=== PATIENT | female | born 1970 | race Caucasian/White ===

== ENCOUNTER 2016-06-30 16:27 | Emergency (ER) | payer SELFPAY ==
[2016-06-30 16:28] VITALS: BMI 25.8
[2016-06-30] MEDS ORDERED: LORAZEPAM 2 MG/ML VIAL IV ONE (16:29)
[2016-06-30] MEDS ORDERED: NS 1,000 ML IV ONE (16:29)
[2016-06-30 16:37] VITALS: TEMP 97.6
[2016-06-30 16:45] LABS: ALL NEG? NO
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
[2016-06-30 16:58] LABS: AUTOMATED BASOPHIL 0.2 % (0-2); AUTOMATED EOSINOPHIL 1.1 % (0-5); AUTOMATED LYMPH 18.4 % (17-44); AUTOMATED MONOCYTE 7.7 % (3-10); AUTOMATED NEUTROPHIL 72.6 % (45-76); MPV 8.3 fL (7.4-10.4)
[2016-06-30 16:58] LABS: MDMA* NEG (NEGATIVE); METHAMPHETAMINES NEG (NEGATIVE); OXYCODONE NEG (NEGATIVE)
[2016-06-30 17:01] LABS: AMORPHOUS OCC; LEUKOCYTES/URINE 2+ (NEGATIVE); NITRITE/URINE NEG (NEGATIVE); RBC/URINE 0-2 (0-5); URINE OCCULT BLOOD 1+ (NEG/TRACE)
[2016-06-30 17:06] LABS: BLOOD UREA NITROGEN 11 MG/DL (7-17); CALCIUM 9.6 MG/DL (8.4-10.2); CALCULATED OSMOLALITY 267 MOs/Kg (270-290); CHLORIDE 105 mEq/L (98-107); ETOH-MGDL < 10 mg/dL; GLUCOSE 91 MG/DL (70-99); SODIUM LEVEL 139 mEq/L (137-146); TOTAL PROTEIN 7.4 G/DL (6.3-8.2)
[2016-06-30 18:07] VITALS: BP 168/87; PULSE 91
== END 2016-06-30 18:05 | disposition home or self-care (01) ==
LOC: ED 16:27
DX: F14.10 Cocaine abuse, uncomplicated (principal)
CPT/HCPCS: 36415; 80053; 80307; 81001; 81025; 85025; 93005; 96361; 96374; 99284; J2060

== ENCOUNTER 2016-06-30 19:39 | Emergency (ER) | payer SELFPAY ==
[2016-06-30 19:41] VITALS: BMI 25.8
== END 2016-06-30 19:40 | disposition left against medical advice (07) ==
LOC: ED 19:39
DX: F19.99 Other psychoactive substance use, unspecified with unspecified psychoactive substance-induced disorder (principal)